=== PATIENT | female | born 1935 | race Caucasian/White ===

== ENCOUNTER → 2016-04-30 | Outpatient (CLI) | payer MEDICARE ==
[~2016-04-30] MED LIST: ASPIRIN EC81 M1 PO; BENICAR20 MG PO; ZOCOR20 MG PO; ZOLOFT50 MG PO
--- NOTE | ~2016-04-30 | MY11 ---
[facility] A Service of [facility] [place] RADIOLOGY TEXT RESULTS PATIENT: JUANA CHIN LOCATION: [facility] : 31 UNIT #: [id number] AGE: [address]: Mary Ellen Edouard MD SEX: F ORDER DR: [id number] [facility] [address] [place], [place] [address] [id number] O MR#: [id number] Acc #: [id number] NAME: JUANA CHIN : 1935 SEX: F STUDY DATE/TIME: 04/30/2016 15:03 UNIT: [facility] ROOM: STUDY DESCRIPTION: MY Mammogram Screening Dig Jacques Attending Physician: Mary Ellen Edouard M.D. Ordering Physician: Mary Ellen Edouard M.D. Primary Care Physician: Amandeep Harrison M.D. MEDICAL IMAGING REPORT This report is preliminary unless electronic signature is present EXAM Digital screening mammogram. DATE OF EXAM 04/30/2016 LOCATION [facility]. HISTORY 80-year-old woman previous left lumpectomy with adjuvant radiation therapy age 74. Patient on hormone replacement. Annual screen. COMPARISON Mammograms 05/27/2011, 03/29/2012, 04/02/2013, 04/16/2014, 04/28/2015. TECHNIQUE Digital imaging of each breast was completed utilizing screening protocol. An additional exaggerated craniocaudal view of the left breast is provided. Lumpectomy markers are placed. Review includes FDA-approved CAD device. FINDINGS The breast parenchyma is partially fatty replaced. There is no dominant breast mass. I see no suspicious microcalcifications and no suspicious architectural deformity. Post lumpectomy findings left breast are stable. IMPRESSION Negative mammogram. Stable post lumpectomy findings left breast. Annual screening recommended. Patients over the age of 40 are entered into a reminder system with target due date for the next mammogram. A result letter will also be sent to the [facility] A Service [facility] RADIOLOGY TEXT RESULTS PATIENT: JUANA CHIN LOCATION: [facility] : 33 UNIT #: [id number] AGE: [address]: Mary Ellen Edouard MD SEX: F ORDER DR: patient. BIRADS: 1 Negative. Dictated by... Quinn Bishop M.D. THIS IS AN ELECTRONICALLY VERIFIED REPORT Quinn Bishop M.D. at 05/03/2016 8:03 AM [email or web address] TD: 04/30/2016 20:07 JOB #: [id number] MEDICAL IMAGING REPORT COPY
== END | disposition home or self-care (01) ==
LOC: CWCC 14:18
DX: Z12.31 Encounter for screening mammogram for malignant neoplasm of breast (principal); Z85.3 Personal history of malignant neoplasm of breast; Z98.890 Other specified postprocedural states; Z79.890 Hormone replacement therapy
CPT/HCPCS: G0202

== ENCOUNTER → 2016-10-20 | Outpatient (CLI) | payer MEDICARE ==
--- NOTE | ~2016-10-20 | CT4 ---
[facility] A Service [facility] RADIOLOGY TEXT RESULTS PATIENT: JUANA CHIN [facility] : 33 UNIT #: [id number] AGE: [address]: Mary Ellen Edouard MD SEX: F ORDER DR: [id number] [facility] [address] [place], [place] [address] [id number] O MR#: [id number] Acc #: [id number] NAME: JUANA CHIN : 1935 SEX: F STUDY DATE/TIME: 10/20/2016 15:03 UNIT: [facility] ROOM: STUDY DESCRIPTION: CT Abd and Pelv Wo Cont Attending Physician: Mary Ellen Edouard M.D. Referring Physician: Mary Ellen Edouard M.D. Ordering Physician: Mary Ellen Edouard M.D. Primary Care Physician: Mary Ellen Edouard M.D. MEDICAL IMAGING REPORT This report is preliminary unless electronic signature is present EXAM CT abdomen and pelvis without contrast. HISTORY Low abdomen pain and hematuria since 10/14/2016. COMPARISON None TECHNIQUE Axial 3 mm images were obtained through the abdomen and pelvis without IV or oral contrast. Sagittal and coronal reconstructions were generated. This CT exam was performed with one or more of the following radiation dose reduction techniques: automatic exposure control, adjustment of mA and/or kV according to patient size, and iterative reconstruction. FINDINGS The lung bases are clear. The liver, spleen, pancreas, adrenal glands, and kidneys are normal. The gallbladder may have some sludge within it. It seems that there is some high-density material layering within the gallbladder. The aorta is normal in size and there is no adenopathy. The bowel is normal. The uterus and adnexal regions of the bladder are normal. The bones show mild degenerative changes of the lumbar spine. IMPRESSION Negative unenhanced CT abdomen and pelvis. There are no urinary stones. Dictated by... Hansel Gonzales M.D. [facility] A Service [facility] RADIOLOGY TEXT RESULTS PATIENT: JUANA CHIN [facility] : 33 UNIT #: [id number] AGE: [address]: Mary Ellen Edouard MD SEX: F ORDER DR: THIS IS AN ELECTRONICALLY VERIFIED REPORT Hansel Gonzales M.D. at 10/22/2016 1:58 PM ERASMO/chung TD: 10/22/2016 01:49 JOB #: [id number] MEDICAL IMAGING REPORT Page 1 of 1 COPY
== END | disposition home or self-care (01) ==
LOC: CCAT 14:04
DX: R10.9 Unspecified abdominal pain (principal); R31.9 Hematuria, unspecified; R11.0 Nausea
CPT/HCPCS: 74176